=== PATIENT | female | born 1970 | race Caucasian/White ===

== ENCOUNTER 2017-03-13 19:18 | Emergency (ER) | payer BC ==
[~2017-03-13 19:18] MED LIST: ASPI-612 PO; CYAN100070 PO; DAPA5TAB PO; DOCU-109 PO; FENO54TA PO; HYDR-2758 PO; LEVO75TA5 PO; LISI-338 PO; MAGN2400 PO; METF500T4 PO; METO-269 PO; PANT40TA5 PO; POLY17PO29 PO; SAXA5TAB PO; SIMV20TA3 PO; SUMA100T4 PO; TOPI100T42 PO
[2017-03-13 20:05] VITALS: BP 151/88
--- NOTE | 2017-03-13 21:01 | PHYS DOC ---
Past Medical History Past Medical History: Diabetes-Type II, High Cholesterol, Hypothyroid, Migraines, UTI Additional Past Medical Histor: PT UNABLE TO WALK Past Surgical History: Appendectomy, Tubal ligation Additional Past Surgical Histo: L ROTATOR CUFF, LIVER RESECTION- BENIGN TUMOR, R WRIST SX, PENNICULECTOMY Alcohol Use: Rarely Drug Use: None Adult General Chief Complaint Chief Complaint: UPPER EXTREMITY PAIN HPI HPI Patient is a 46 year old female presents emergency department stating that she is having right upper arm pain and discomfort. She states that she was trying to pull herself into the truck with her right arm when she felt a pull in her upper deltoid area. Patient states that she has decreased range of motion since the incident. She has not taken anything for pain and discomfort. She states that this is happened approximately 2 hours ago. She states that she is unable to take hydrocodone as it causes nausea vomiting. She denies any numbness or tingling down the into the right lower hand. She does have decreased strength in the hand and arm. Review of Systems Review of Systems Constitutional: Denies fever or chills [] Eyes: Denies change in visual acuity, redness, or eye pain [] HENT: Denies nasal congestion or sore throat [] Respiratory: Denies cough or shortness of breath [] Cardiovascular: No additional information not addressed in HPI [] GI: Denies abdominal pain, nausea, vomiting, bloody stools or diarrhea [] : Denies dysuria or hematuria [] Musculoskeletal: Denies back pain. Patient with right upper arm pain and discomfort. Integument: Denies rash or skin lesions [] Neurologic: Denies headache, focal weakness or sensory changes [] Endocrine: Denies polyuria or polydipsia [] Allergies Allergies Allergies Coded Allergies Type Severity Reaction Last Updated Verified No Known Drug Allergies 04/16/14 No Physical Exam Physical Exam Constitutional: Well developed, well nourished, no acute distress, non-toxic appearance. [] HENT: Normocephalic, atraumatic, bilateral external ears normal, oropharynx moist, no oral exudates, nose normal. [] Eyes: PERRLA, EOMI, conjunctiva normal, no discharge. [] Neck: Normal range of motion, no tenderness, supple, no stridor. [] Cardiovascular:Heart rate regular rhythm, no murmur [] Lungs & Thorax: Bilateral breath sounds clear to auscultation [] Skin: Warm, dry, no erythema, no rash. [] Back: No tenderness Extremities: Right upper arm tenderness, no cyanosis, no clubbing, ROM intact, no edema. No bruising no discomfort she's noted in the upper arm area. Patient with decreased strength and decreased range of motion noted with the right arm. Neurologic: Alert and oriented X 3, normal motor function, normal sensory function, no focal deficits noted. [] Psychologic: Affect normal, judgement normal, mood normal. [] Current Patient Data Vital Signs Vital Signs Date Time Temp Pulse Resp B/P (MAP) Pulse Ox O2 Delivery O2 Flow Rate FiO2 03/13/17 20:05 98.1 120 18 90 Room Air 98.1 EKG EKG [] Radiology/Procedures Radiology/Procedures [] Course & Med Decision Making Course & Med Decision Making Pertinent Labs and Imaging studies reviewed. (See chart for details) Patient will be placed in a sling with recommendations to remove the arm out of the sling 4-5 times a day and do active range of motion as much possible. Patient will be encouraged to use ice packs on 20 minutes off 20 minutes several times a day. She'll also be encouraged to use ibuprofen for pain and discomfort. Patient will be discharged home in stable condition signs and symptoms to return back to the emergency department have been provided. [] Dragon Disclaimer Dragon Disclaimer This electronic medical record was generated, in whole or in part, using a voice recognition dictation system. Departure Departure Impression: Primary Impression: Right upper limb pain Disposition: 01 HOME, SELF-CARE Condition: STABLE Referrals: EMANUEL NAPIER (PCP) Patient Instructions: Muscle Strain, [id number] Additional Instructions: Wear the sling until you follow-up with orthopedic. Take the arm out of the sling 4-5 times a day and do active range of motion. Ibuprofen for pain and discomfort. Ice packs on 20 minutes off 20 minutes several times a day. Follow-up with orthopedic within the next 3-5 days. Return back to emergency department for signs and symptoms of become worse. JOEL SHULTZ APRN Mar 13, 2017 21:01
== END 2017-03-13 21:14 | disposition home or self-care (01) ==
LOC: ER 19:18
DX: M79.601 Pain in right arm (principal); E03.9 Hypothyroidism, unspecified; E11.9 Type 2 diabetes mellitus without complications; E78.00 Pure hypercholesterolemia, unspecified; G43.909 Migraine, unspecified, not intractable, without status migrainosus; Z87.440 Personal history of urinary (tract) infections
CPT/HCPCS: 99282

== ENCOUNTER → 2019-02-24 | Outpatient (CLI) | payer BC ==
[~2019-02-24] MED LIST changes: -HYDR-2758 PO; +HYDR-2761 PO; +METF500T16 PO; -METF500T4 PO
--- NOTE | 2019-02-24 09:29 | CARD ---
MR#: [id number] Date of Study: 02/24/2019 Ordering Physician: HUGH COSTELLO, Referring Physician: HUGH COSTELLO Tech: Danna Polanco CURTIS APPROVED REPORT EXAM: Two-dimensional and M-mode echocardiogram with Doppler and color Doppler. Other Information Quality : AverageHR: 70bpm Rhythm : NSR INDICATION Congestive Heart Failure 2D DIMENSIONS RVDd3.1 (2.9-3.5cm)Left Atrium(2D)3.4 (1.6-4.0cm) IVSd0.7 (0.7-1.1cm)Aortic Root(2D)3.1 (2.0-3.7cm) LVDd4.5 (3.9-5.9cm)LVOT Diameter1.8 (1.8-2.4cm) PWd0.9 (0.7-1.1cm)LVDs2.9 (2.5-4.0cm) FS (%) 35.0 %SV59.7 ml M-Mode DIMENSIONS Left Atrium(MM)3.90 (2.5-4.0cm)Aortic Root3.35 (2.2-3.7cm) Aortic Valve AoV Peak Juan.133.5cm/sAoV VTI28.5cm AO Peak GR.7.1mmHgLVOT Peak Juan.111.0cm/s AO Mean GR.4mmHgAVA (VMAX)2.05cm2 TREY (VTI)2.10cm2 Mitral Valve MV E Nekaimwq467.0cm/sMV DECEL HFXL460vr MV A Glbylgsq85.3cm/sE/A Ratio1.6 MV A [id number] Pulmonary Valve PV Peak Pbllqveu728.3cm/s Tricuspid Valve TR P. Lksqtoxr961we/sRAP KHIQOEIQ6seCc TR Peak Gr.08iyZpQNUW66mhIc LEFT VENTRICLE The left ventricle is normal size. There is normal left ventricular wall thickness. The left ventricu lar systolic function is normal and the ejection fraction is within normal range. The Ejection Fracti on is 60-65%. There is normal LV segmental wall motion. Transmitral Doppler flow pattern is Grade II- pseudonormal filling dynamics. RIGHT VENTRICLE The right ventricle is normal size. There is normal right ventricular wall thickness. The right ventr icular systolic function is normal. ATRIA The left atrium size is normal. The right atrium size is normal. The interatrial septum is intact wit h no evidence for an atrial septal defect or patent foramen ovale as noted on 2-D or Doppler imaging. AORTIC VALVE The aortic valve is normal in structure and function. The aortic valve is trileaflet. Doppler and Col or Flow revealed no significant aortic regurgitation. There is no significant aortic valvular stenosi s. MITRAL VALVE The mitral valve is normal in structure and function. There is no evidence of mitral valve prolapse. There is no mitral valve stenosis. Doppler and Color-flow revealed trace mitral regurgitation. TRICUSPID VALVE The tricuspid valve is normal in structure and function. Doppler and Color Flow revealed trace tricus pid regurgitation. The PA pressure was estimated at 26 mmHg. There is no tricuspid valve prolapse or vegetation. There is no tricuspid valve stenosis. PULMONIC VALVE The pulmonic valve is not well visualized. GREAT VESSELS The aortic root is normal in size. The ascending aorta is normal in size. The IVC is normal in size a nd collapses >50% with inspiration. PERICARDIAL EFFUSION There is no evidence of significant pericardial effusion. Critical Notification Critical Value: No <Conclusion> The left ventricle is normal size. The left ventricular systolic function is normal and the ejection fraction is within normal range. The Ejection Fraction is 60-65%. There is no significant aortic valvular stenosis. Doppler and Color Flow revealed no significant aortic regurgitation. Doppler and Color-flow revealed trace mitral regurgitation. Doppler and Color Flow revealed trace tricuspid regurgitation. The PA pressure was estimated at 26 mmHg. Signed by : Shashi Pierre MD Electronically Approved : 02/24/2019 09:28:37
== END | disposition home or self-care (01) ==
LOC: ECHO 08:38
PROVIDERS: ATTEND Internal Medicine Cardiovascular Disease
DX: I11.0 Hypertensive heart disease with heart failure (principal); I50.32 Chronic diastolic (congestive) heart failure
CPT/HCPCS: 93306

== ENCOUNTER → 2019-11-26 | Outpatient (CLI) | payer BC ==
[~2019-11-26] MED LIST changes: -MAGN2400 PO; +MAGN24003 PO; -PANT40TA5 PO; +PANT40TA77 PO; +SIMV20TA18 PO; -SIMV20TA3 PO
--- NOTE | 2019-11-26 11:16 | CARD ---
MR#: [id number] Date of Study: 11/26/2019 Ordering Physician: HUGH COSTELLO, Referring Physician: HUGH COSTELLO Tech: Alejandra Nunez RDCS APPROVED REPORT EXAM: Two-dimensional and M-mode echocardiogram with Doppler and color Doppler. Other Information Quality : Good INDICATION Congestive Heart Failure 2D DIMENSIONS RVDd2.4 (2.9-3.5cm)Left Atrium(2D)3.9 (1.6-4.0cm) IVSd0.9 (0.7-1.1cm)Aortic Root(2D)2.8 (2.0-3.7cm) LVDd5.2 (3.9-5.9cm)LVOT Diameter2.0 (1.8-2.4cm) PWd0.8 (0.7-1.1cm)LVDs2.7 (2.5-4.0cm) FS (%) 30.0 %SV100.9 ml LVEF(%)60.0 (>50%) Aortic Valve AoV Peak Juan.135.7cm/sAoV VTI26.4cm AO Peak GR.7.4mmHgLVOT Peak Juan.135.9cm/s LVOT VTI 27.21cmAO Mean GR.4mmHg TREY (VMAX)3.74ck3VGR (VTI)3.39cm2 Mitral Valve MV E Xbdfnkhl64.7cm/sMV DECEL MMFQ543rt MV A Sqtjygkn246.1cm/sMV ZNH08ir E/A Ratio0.8MVA (PHT)2.41cm2 TDI E/Lateral E'15.6E/Medial E'15.3 Pulmonary Vein S1 Rtykkhgd45.4cm/sD2 Yixmeqfc54.2cm/s LEFT VENTRICLE The left ventricle is normal size. There is normal left ventricular wall thickness. The left ventricu lar systolic function is normal and the ejection fraction is within normal range. The Ejection Fracti on is 55-60%. There is normal LV segmental wall motion. Transmitral Doppler flow pattern is Grade I-a bnormal relaxation pattern. RIGHT VENTRICLE The right ventricle is normal size. The right ventricular systolic function is normal. ATRIA The left atrium size is normal. The right atrium size is normal. The interatrial septum is intact wit h no evidence for an atrial septal defect or patent foramen ovale as noted on 2-D or Doppler imaging. AORTIC VALVE The aortic valve is normal in structure and function. Doppler and Color Flow revealed no significant aortic regurgitation. There is no significant aortic valvular stenosis. MITRAL VALVE The mitral valve is calcified but opens well. There is no evidence of mitral valve prolapse. There is no mitral valve stenosis. Doppler and Color-flow revealed trace mitral regurgitation. TRICUSPID VALVE The tricuspid valve is normal in structure and function. Doppler and Color Flow revealed no tricuspid valve regurgitation noted. There is no tricuspid valve stenosis. PULMONIC VALVE The pulmonic valve is not well visualized. Doppler and Color Flow revealed no pulmonic valvular regur gitation. There is no pulmonic valvular stenosis. GREAT VESSELS The aortic root is normal in size. The ascending aorta is mildly dilated at 3.4 cm. The IVC is normal in size and collapses >50% with inspiration. PERICARDIAL EFFUSION There is no evidence of significant pericardial effusion. Critical Notification Critical Value: No <Conclusion> The left ventricle is normal size. The left ventricular systolic function is normal and the ejection fraction is within normal range. The Ejection Fraction is 55-60%. Doppler and Color Flow revealed no significant aortic regurgitation. There is no significant aortic valvular stenosis. Doppler and Color-flow revealed trace mitral regurgitation. Doppler and Color Flow revealed no tricuspid valve regurgitation noted. Signed by : Shashi Pierre MD Electronically Approved : 11/26/2019 11:16:25
== END | disposition home or self-care (01) ==
LOC: ECHO 08:51
PROVIDERS: ATTEND Internal Medicine Cardiovascular Disease
DX: I05.8 Other rheumatic mitral valve diseases (principal); I50.32 Chronic diastolic (congestive) heart failure
CPT/HCPCS: 93306

== ENCOUNTER 2019-12-16 23:04 | Emergency (ER) | payer BC ==
[~2019-12-16] VITALS: Ht 152.4 cm; Wt 95.0 kg
--- NOTE | 2019-12-16 23:20 | PHYS DOC ---
Past Medical History Past Medical History: Diabetes-Type II, High Cholesterol, Hypothyroid, Migraines, UTI Additional Past Medical Histor: PT UNABLE TO WALK Past Surgical History: Appendectomy, Tubal ligation Additional Past Surgical Histo: L ROTATOR CUFF, LIVER RESECTION- BENIGN TUMOR, R WRIST SX, PENNICULECTOMY Smoking Status: Never Smoker Alcohol Use: Rarely Drug Use: None Adult General Chief Complaint Chief Complaint: SHORTNESS OF BREATH [facility] HPI 49-year-old female with underlying history of hypertension, diabetes, hypothyroidism presents to the emergency department with complaints of shortness of breath. Patient states she developed a cough on Friday she went to work on Friday, she works at [employer]. She states on Friday she developed a fever and was sent home from work. She received COVID testing on Friday with results pending at this time. She states her fever has resolved as of yesterday however today she states her shortness of breath has continued to increase, she states she feels like she is running. She appears tachypneic on exam and winded. She denies any nausea, vomiting, headache or visual change at this time. She has been using fwjh-gaj-sxoachk medications including Tylenol. Nothing makes her symptoms worse, nothing makes her symptoms better. Review of Systems Review of Systems Constitutional: fever Eyes: Denies change in visual acuity, redness, or eye pain [] HENT: Denies nasal congestion or sore throat [] Respiratory: cough/SOB Cardiovascular: No additional information not addressed in HPI [] GI: Denies abdominal pain, nausea, vomiting, bloody stools or diarrhea [] Musculoskeletal: Denies back pain or joint pain [] Integument: Denies rash or skin lesions [] Neurologic: Denies headache, focal weakness or sensory changes [] All other systems were reviewed and found to be within normal limits, except as documented in this note. Current Medications Current Medications Current Medications Medications (Trade) Dose Ordered Sig/Jeremy Start Time Stop Time Status Last Admin Dose Admin Sodium Chloride 1,000 ml @ 1,000 mls/hr Q1H 12/17/19 00:00 12/17/19 00:59 12/16/19 23:41 1,000 MLS/HR Allergies Allergies Allergies Coded Allergies Type Severity Reaction Last Updated Verified No Known Drug Allergies 04/16/14 No Physical Exam Physical Exam Constitutional: Well developed, well nourished, mild distress, non-toxic appearance. [] HENT: Normocephalic, atraumatic, bilateral external ears normal, oropharynx moist, no oral exudates, nose normal. [] Eyes: PERRLA, EOMI, conjunctiva normal, no discharge. [] Cardiovascular: Tachycardia Lungs & Thorax: decreased BS Abdomen: Bowel sounds normal, soft, no tenderness, no masses, no pulsatile masses. [] Skin: Warm, dry, no erythema, no rash. [] Extremities: No tenderness, no edema. [] Neurologic: Alert and oriented X 3, no focal deficits noted. [] Psychologic: Affect normal, judgement normal, mood normal. [] Current Patient Data Vital Signs Vital Signs Date Time Temp Pulse Resp B/P (MAP) Pulse Ox O2 Delivery O2 Flow Rate FiO2 12/16/19 23:20 98.9 87 18 149/91 (110) 97 Room Air 98.9 Lab Values Laboratory Tests Test 12/16/19 23:32 12/16/19 23:40 White Blood Count 6.8 x10^3/uL (4.0-11.0) Red Blood Count 4.22 x10^6/uL (3.50-5.40) Hemoglobin 10.2 g/dL (12.0-15.5) L Hematocrit 31.6 % (36.0-47.0) L Mean Corpuscular Volume 75 fL (79-100) L Mean Corpuscular Hemoglobin 24 pg (25-35) L Mean Corpuscular Hemoglobin Concent 32 g/dL (31-37) Red Cell Distribution Width 18.1 % (11.5-14.5) H Platelet Count 448 x10^3/uL (140-400) H Neutrophils (%) (Auto) 47 % (31-73) Lymphocytes (%) (Auto) 45 % (24-48) Monocytes (%) (Auto) 6 % (0-9) Eosinophils (%) (Auto) 1 % (0-3) Basophils (%) (Auto) 1 % (0-3) Neutrophils # (Auto) 3.2 x10^3/uL (1.8-7.7) Lymphocytes # (Auto) 3.1 x10^3/uL (1.0-4.8) Monocytes # (Auto) 0.4 x10^3/uL (0.0-1.1) Eosinophils # (Auto) 0.0 x10^3/uL (0.0-0.7) Basophils # (Auto) 0.0 x10^3/uL (0.0-0.2) Sodium Level 138 mmol/L (136-145) Potassium Level 3.4 mmol/L (3.5-5.1) L Chloride Level 102 mmol/L (98-107) Carbon Dioxide Level 20 mmol/L (21-32) L Anion Gap 16 (6-14) H Blood Urea Nitrogen 12 mg/dL (7-20) Creatinine 1.0 mg/dL (0.6-1.0) Estimated GFR (Cockcroft-Gault) 58.9 BUN/Creatinine Ratio 12 (6-20) Glucose Level 264 mg/dL (70-99) H Calcium Level 8.8 mg/dL (8.5-10.1) Total Bilirubin 0.2 mg/dL (0.2-1.0) Aspartate Amino Transferase (AST) 16 U/L (15-37) Alanine Aminotransferase (ALT) 20 U/L (14-59) Alkaline Phosphatase 80 U/L (46-116) Troponin I Quantitative < 0.017 ng/mL (0.000-0.055) SR-Czf-O-Type Natriuretic Peptide 175 pg/mL (0-124) H Total Protein 6.4 g/dL (6.4-8.2) Albumin 3.4 g/dL (3.4-5.0) Albumin/Globulin Ratio 1.1 (1.0-1.7) Influenza Type A Antigen Negative (NEGATIVE) Influenza Type B Antigen Negative (NEGATIVE) Laboratory Tests 12/16/19 23:32 Laboratory Tests 12/16/19 23:32 EKG EKG [] Radiology/Procedures Radiology/Procedures [facility] [address] [facility] [place], [place] [id number] IMAGING REPORT Signed PATIENT: CESAR HOFF LACCOUNT: [id number] : 1970 LOCATION: ER AGE: 49 SEX: F EXAM STATUS: REG ER ORD. PHYSICIAN: RUT MTZ MD REASON: Shortness of Breath/Cough PROCEDURE: PORTABLE CHEST 1V PORTABLE CHEST 1V INDICATION: Dyspnea. COMPARISON STUDY: None. FINDINGS: Lungs: Low lung volume. No focal airspace disease. Normal pulmonary vasculature. Pleura: No pleural effusion or pneumothorax. Heart and Mediastinum: Normal cardiomediastinal silhouette and great vessels. IMPRESSION: Low lung volume. No consolidation. Electronically signed by: Blanca Pascal MD (12/17/2019 12:09 AM) [id number] DICTATED and SIGNED BY: BLANCA PASCAL MD DATE: 12/17/19 0009 [] Course & Med Decision Making Course & Med Decision Making Pertinent Labs and Imaging studies reviewed. (See chart for details) []49-year-old female with underlying history of hypertension, diabetes, hypothyroidism presents to the emergency department with complaints of shortness of breath. Patient states she developed a cough on Friday she went to work on Friday, she works at [employer]. She states on Friday she developed a fever and was sent home from work. She received COVID testing on Friday with results pending at this time. She states her fever has resolved as of yesterday however today she states her shortness of breath has continued to increase, she states she feels like she is running. She appears tachypneic on exam and winded. She denies any nausea, vomiting, headache or visual change at this time. She has been using chdp-aiy-xihrpkc medications including Tylenol. Nothing makes her symptoms worse, nothing makes her symptoms better. Influenza negative, Chest x-ray negative for acute process Hemoglobin 10.2, white blood cell count 6.8, sodium 138, blood sugar 264 Patient is awaiting covered testing, she was tested on Friday. Recommend discharge home quarantining as previously prescribed. Return precautions provided Dragon Disclaimer Dragon Disclaimer This electronic medical record was generated, in whole or in part, using a voice recognition dictation system. Departure Departure Impression: Primary Impression: Suspected 2019 novel coronavirus infection Disposition: HOME, SELF-CARE Condition: STABLE Referrals: EMANUEL NAPIER (PCP) Patient Instructions: Shortness of Breath, Zqoj-vn-Fvis Additional Instructions: Tylenol as needed for fever CXR reviewed without acute findings of fluid or consolidation Recommend quarantining yourself as you are instructed by your job Return to the ER with worsening SOB symptoms - if you are unable to complete your daily activities (putting on clothes, walking to bathroom, etc) return to the ER RUT MTZ MD Dec 16, 2019 23:20
[2019-12-16 23:45] LABS: BASO % 1 % (0-3); EOS % 1 % (0-3); HEMATOCRIT 31.6 % (36.0-47.0); HEMOGLOBIN 10.2 g/dL (12.0-15.5); LYMPH # 3.1 x10^3/uL (1.0-4.8); LYMPH % 45 % (24-48); MEAN CORPUSCULAR HEMOGLOBIN 24 pg (25-35); MEAN CORPUSCULAR HGB CONC 32 g/dL (31-37); MEAN CORPUSCULAR VOLUME 75 fL (79-100); MONO # 0.4 x10^3/uL (0.0-1.1); MONO % 6 % (0-9); NEUT # 3.2 x10^3/uL (1.8-7.7); NEUT % 47 % (31-73); PLATELET COUNT 448 x10^3/uL (140-400); RED BLOOD COUNT 4.22 x10^6/uL (3.50-5.40); RED CELL DISTRIBUTION WIDTH 18.1 % (11.5-14.5); WHITE BLOOD COUNT 6.8 x10^3/uL (4.0-11.0)
[2019-12-16 23:54] LABS: CALCIUM 8.8 mg/dL (8.5-10.1); GFR 58.9; POTASSIUM 3.4 mmol/L (3.5-5.1)
[2019-12-16 23:59] LABS: ALBUMIN 3.4 g/dL (3.4-5.0); ALBUMIN/GLOBULIN RATIO 1.1 (1.0-1.7); TOTAL BILIRUBIN 0.2 mg/dL (0.2-1.0); TOTAL PROTEIN 6.4 g/dL (6.4-8.2)
[2019-12-17] MEDS ORDERED: IV NORMAL SALINE 1000ML BAG 1,000 ML IV SCH
[2019-12-17 00:07] LABS: INFLUENZA A PATIENT NEGATIVE (NEGATIVE); INFLUENZA B PATIENT NEGATIVE (NEGATIVE)
--- NOTE | 2019-12-17 00:12 | RAD ---
PORTABLE CHEST 1V INDICATION: Dyspnea. COMPARISON STUDY: None. FINDINGS: Lungs: Low lung volume. No focal airspace disease. Normal pulmonary vasculature. Pleura: No pleural effusion or pneumothorax. Heart and Mediastinum: Normal cardiomediastinal silhouette and great vessels. IMPRESSION: Low lung volume. No consolidation. Electronically signed by: Sanju Pascal MD (12/17/2019 12:09 AM) [id number]
[2019-12-17 00:33] VITALS: BP 170/85
== END 2019-12-17 00:35 | disposition home or self-care (01) ==
LOC: ER 23:04
DX: R06.02 Shortness of breath (principal); R05 Cough; R50.9 Fever, unspecified; E11.9 Type 2 diabetes mellitus without complications; E78.00 Pure hypercholesterolemia, unspecified; E03.9 Hypothyroidism, unspecified; G43.909 Migraine, unspecified, not intractable, without status migrainosus; Z90.89 Acquired absence of other organs; Z98.51 Tubal ligation status; Z03.818 Encounter for observation for suspected exposure to other biological agents ruled out; Z98.890 Other specified postprocedural states
CPT/HCPCS: 36415; 71045; 80053; 83880; 84484; 85025; 87804; 99284; J7030